=== PATIENT | male | born 1990 | race Caucasian/White ===

== ENCOUNTER 2017-03-14 11:27 | Emergency (ER) | payer SELFPAY ==
[~2017-03-14] VITALS: Ht 190.5 cm; Wt 88.2 kg
[2017-03-14 11:31] VITALS: BP 122/70; PULSE 65; RESP 16; TEMP 98.5; O2SAT 98
[2017-03-14 11:58] LABS: AUTOMATED NEUTROPHIL # 8.9 TH/MM3 (1.8-7.7); BASOPHIL % 0.1 % (0.0-2.0); EOSINOPHIL % 0.3 % (0.0-4.0); HEMATOCRIT 41.9 % (39.0-51.0); HEMO FLAGS DIFF FINAL; LYMPH % 13.5 % (9.0-44.0); LYMPHOCYTE # 1.5 TH/MM3 (1.0-4.8); MEAN CELL VOLUME 84.9 FL (80.0-100.0); MEAN CORPUSCULAR HEMOGLOBIN 29.3 PG (27.0-34.0); MEAN CORPUSCULAR HGB CONC 34.5 % (32.0-36.0); MONO % 4.6 % (0.0-8.0); NEUT % 81.5 % (16.0-70.0); PLATELET COUNT 186 TH/MM3 (150-450); RED BLOOD COUNT 4.94 MIL/MM3 (4.50-5.90); RED CELL DISTRIBUTION WIDTH 12.9 % (11.6-17.2); WHITE BLOOD COUNT 10.9 TH/MM3 (4.0-11.0)
[2017-03-14 12:12] LABS: APTT (PATIENT) 23.1 SEC (24.3-30.1); PROTHROMBIN TIME - PATIENT 10.9 SEC (9.8-11.6)
[2017-03-14 12:16] LABS: ALT (GPT) 27 U/L (12-78); ANION GAP 10 MEQ/L (5-15); AST (GOT) 26 U/L (15-37); BICARBONATE 24.7 MEQ/L (21.0-32.0); BLOOD UREA NITROGEN 14 MG/DL (7-18); CHLORIDE 104 MEQ/L (98-107); GLOMERULAR FILTRATION RATE 70 ML/MIN (>89); POTASSIUM 3.9 MEQ/L (3.5-5.1); SODIUM (NA) 139 MEQ/L (136-145)
[2017-03-14 12:19] LABS: ALKALINE PHOSPHATASE 91 U/L (45-117); TOTAL BILIRUBIN ADULT 0.4 MG/DL (0.2-1.0)
[2017-03-14 14:47] VITALS: BP 131/77; PULSE 81; RESP 16; O2SAT 100
[2017-03-14] MEDS ORDERED: FLINT2 CHEW (14:47)
[2017-03-14] MEDS ORDERED: THERM PO (14:47)
[2017-03-14] MEDS ORDERED: B-122000 PO (14:47)
[2017-03-14] MEDS ORDERED: MORPHINE SULFATE 4 MG/ML INJ IV PUSH ONE (15:00)
[2017-03-14] MEDS ORDERED: ONDANSETRON HCL 4 MG/2 ML VIAL IV PUSH ONE (15:00)
--- NOTE | 2017-03-14 16:10 | PD ---
HPI Chief Complaint: Abdominal Pain Time Seen by Provider: 14:45 Travel History International Travel<30 days: No Contact w/Intl Traveler<30days: No Traveled to known affect area: No History of Present Illness HPI 27-year-old male that presents to the ED for evaluation of left flank pain that radiates to the testicles. Per patient she's had this since 10:00 this morning. Per patient he went to the [facility] office and was told to come here. They were concerned about possible testicular torsion. There were told to come here. Per patient the pain has improved since being here. Per patient he was 9 out of 10 and severe with nausea and vomited and now is more like a 3 out of 10.. Per patient the pain seems to go from the flank to the testicle and not the other way around. He denies any trauma to the testicle. No unprotected sex. No bowel movement issues or urinary issues. No penile discharge. He denies any surgeries. No trauma. No fevers chills or sweats. No other medical issues. No fevers chills or sweats. He threw up whatever he ate. No blood. PFSH Past Medical History Anxiety: Yes Depression: Yes Past Surgical History Surgical History: No Previous Surgery Social History Alcohol Use: Yes Tobacco Use: No Substance Use: No Allergies-Medications (Allergen,Severity, Reaction): Coded Allergies: No Known Allergies (Unverified , 03/14/17) Reported Meds & Prescriptions Reported Meds & Active Scripts Active Cipro (Ciprofloxacin HCl) 500 Mg Tab 500 Mg PO BID 5 Days Flomax (Tamsulosin HCl) 0.4 Mg Cap 0.4 Mg PO HS Ibuprofen 800 Mg Tab 800 Mg PO Q8H PRN Hydrocodone-Acetamin 5-325 mg (Hydrocodone/Acetaminophen) 5 Mg-325 Mg Tablet 1 Tab PO QID PRN Reported Flintstones Complete (Iron/Minerals/Multivitamins) 60 Mg Tab 1 Tab CHEW DAILY Thera M Plus (Multivitamins/Minerals Therapeutic) 1 Tab 1 Tab PO DAILY B-12 (Cyanocobalamin) 2,000 Mcg Tab 2,000 Mcg PO DAILY Review of Systems Except as stated in HPI: all other systems reviewed are Neg Physical Exam Narrative GENERAL: SKIN: Warm and dry. HEAD: Atraumatic. Normocephalic. EYES: Pupils equal and round. No scleral icterus. No injection or drainage. ENT: No nasal bleeding or discharge. Mucous membranes pink and moist. Tongue is midline. No uvula deviation. NECK: Trachea midline. No JVD. CARDIOVASCULAR: Regular rate and rhythm. No murmurs, S3, S4. RESPIRATORY: No accessory muscle use. Clear to auscultation. Breath sounds equal bilaterally. GASTROINTESTINAL: Abdomen soft, non-tender, nondistended. Hepatic and splenic margins not palpable. MUSCULOSKELETAL: Extremities without clubbing, cyanosis, or edema. No obvious deformities. Full range of motion of the upper and lower extremities bilaterally. 2+ pulses bilaterally. NEUROLOGICAL: Awake and alert. No obvious cranial nerve deficits. Motor grossly within normal limits. Five out of 5 muscle strength in the arms and legs. Normal speech. PSYCHIATRIC: Appropriate mood and affect; insight and judgment normal. Data Data Last Documented VS Vital Signs Date Time Temp Pulse Resp B/P (MAP) Pulse Ox O2 Delivery O2 Flow Rate FiO2 03/14/17 17:04 82 20 136/65 (88) 100 Room Air 03/14/17 11:31 98.5 Orders Orders Complete Blood Count With Diff (03/14/17 11:41) Comprehensive Metabolic Panel (03/14/17 11:41) Lipase (03/14/17 11:41) Prothrombin Time / Inr (Pt) (03/14/17 11:41) Act Partial Throm Time (Ptt) (03/14/17 11:41) Urinalysis - C+S If Indicated (03/14/17 11:41) Us Testicles W Doppler (03/14/17 14:53) Ct Abd/Pel W/O Iv Contrast (03/14/17 14:53) Morphine Inj (Morphine Inj) (03/14/17 15:00) Ondansetron Inj (Zofran Inj) (03/14/17 15:00) Ed Discharge Order (03/14/17 17:01) Labs Laboratory Tests Test 03/14/17 11:46 White Blood Count 10.9 TH/MM3 Red Blood Count 4.94 MIL/MM3 Hemoglobin 14.5 GM/DL Hematocrit 41.9 % Mean Corpuscular Volume 84.9 FL Mean Corpuscular Hemoglobin 29.3 PG Mean Corpuscular Hemoglobin Concent 34.5 % Red Cell Distribution Width 12.9 % Platelet Count 186 TH/MM3 Mean Platelet Volume 7.0 FL Neutrophils (%) (Auto) 81.5 % Lymphocytes (%) (Auto) 13.5 % Monocytes (%) (Auto) 4.6 % Eosinophils (%) (Auto) 0.3 % Basophils (%) (Auto) 0.1 % Neutrophils # (Auto) 8.9 TH/MM3 Lymphocytes # (Auto) 1.5 TH/MM3 Monocytes # (Auto) 0.5 TH/MM3 Eosinophils # (Auto) 0.0 TH/MM3 Basophils # (Auto) 0.0 TH/MM3 CBC Comment DIFF FINAL Differential Comment Prothrombin Time 10.9 SEC Prothromb Time International Ratio 1.0 RATIO Activated Partial Thromboplast Time 23.1 SEC Blood Urea Nitrogen 14 MG/DL Creatinine 1.25 MG/DL Random Glucose 123 MG/DL Total Protein 7.8 GM/DL Albumin 4.3 GM/DL Calcium Level 9.7 MG/DL Alkaline Phosphatase 91 U/L Aspartate Amino Transf (AST/SGOT) 26 U/L Alanine Aminotransferase (ALT/SGPT) 27 U/L Total Bilirubin 0.4 MG/DL Sodium Level 139 MEQ/L Potassium Level 3.9 MEQ/L Chloride Level 104 MEQ/L Carbon Dioxide Level 24.7 MEQ/L Anion Gap 10 MEQ/L Estimat Glomerular Filtration Rate 70 ML/MIN Lipase 82 U/L MDM Medical Decision Making Medical Screen Exam Complete: Yes Emergency Medical Condition: Yes Medical Record Reviewed: Yes Interpretation(s) CBC & BMP Diagram 03/14/17 11:46 Total Protein 7.8, Albumin 4.3, Calcium Level 9.7, Alkaline Phosphatase 91, Aspartate Amino Transf (AST/SGOT) 26, Alanine Aminotransferase (ALT/SGPT) 27, Total Bilirubin 0.4 Last Impressions Scrotum Ultrasound 03/14/17 668 Signed Impressions: Service Date/Time: March 15:02 - CONCLUSION: Normal examination. Durga Tate MD Abdomen/Pelvis CT 03/14/17 0804 Signed Impressions: Service Date/Time: March 16:10 - CONCLUSION: There is a 5 x 3 mm stone in the distal left ureter causing mild asymmetric distention of the left collecting system. Additionally, there is a 2 mm nonobstructing left renal stone. Durga Wills MD Differential Diagnosis Kidney stone versus kidney infection versus testicular torsion versus UTI versus abdominal pain versus muscle strain versus epididymitis Narrative Course 27-year-old male that presents to the ED for evaluation of left flank pain to the testicle. Patient was properly examined and was found to have signs and symptoms concerning for torsion versus kidney stone. Labs and imaging were ordered. Patient was given pain medications IV. Labs and imaging showed kidney stone. Otherwise unremarkable. Patient was reassured. Kidney stone does appear to be 5 mm. Patient was told that there is a high chance that this will pass on its own without having to do anything else. He understands this. Patient was given prescriptions for Lortab, ibuprofen, Cipro to cover for bacterial infection as well as Flomax. He was told that if anything worsens she is to come back to the ED. See ED worsening symptoms. Follow with PCP. My attending Dr. Callahan evaluated the patient and agrees with plan. Diagnosis Primary Impression: Left flank pain Additional Impression: Renal colic on left side Patient Instructions: Narcotic given in the ED, General Instructions Departure Forms: Tests/Procedures, Work Release Enter return to work date: Mar 16, 2017 Additional Instructions: Take medications as prescribed. Follow-up with PCP. See ED for any worsening symptoms. Do not drink or drive while taking pain medication. Apply ice or heat as needed for pain Med/Other Pt SpecificInfo: Prescription(s) given Scripts Ciprofloxacin (Cipro) 500 Mg Tab 500 MG PO BID for Infection for 5 Days, #10 TAB 0 Refills Prov: Dejuan Purcell MD 03/14/17 Tamsulosin (Flomax) 0.4 Mg Cap 0.4 MG PO HS for Manage Prostate Problems, #10 CAP 0 Refills Prov: Dejuan Purcell MD 03/14/17 Ibuprofen (Ibuprofen) 800 Mg Tab 800 MG PO Q8H Y for PAIN SCALE 1 TO 10, #20 TAB 0 Refills Prov: Dejuan Purcell MD 03/14/17 Hydrocodone/Acetaminophen (Hydrocodone-Acetamin 5-325 mg) 5 Mg-325 Mg Tablet 1 TAB PO QID Y for PAIN SCALE 1 TO 10, #15 Prov: Dejuan Purcell MD 03/14/17 Disposition: 01 DISCHARGE HOME Condition: Stable Krishna Guzman Mar 14, 2017 16:10
--- NOTE | 2017-03-14 16:21 | PD ---
Physical Exam Date Seen by Provider: Mar 14, 2017 Time Seen by Provider: 15:00 Narrative I, Dr. Purcell, have reviewed the advance practice practitioner's documentation and am in agreement, met with the patient face to face, made the diagnosis, and the medical decision making was done by me. *My assessment and Findings: Patient seen and evaluated with PA, please see PA notes for further details. Here with left flank pains radiating to the left testicle, pain improved in the ER and his own. Initial evaluation shows a pretty benign abdomen, mild left flank tenderness. Male did not show any signs of significant testicular tenderness on palpation, masses, penile discharge, or any signs of rotation. Laboratory Tests Test 03/14/17 11:46 Neutrophils (%) (Auto) 81.5 % (16.0-70.0) Neutrophils # (Auto) 8.9 TH/MM3 (1.8-7.7) Activated Partial Thromboplast Time 23.1 SEC (24.3-30.1) Random Glucose 123 MG/DL (74-106) Estimat Glomerular Filtration Rate 70 ML/MIN (>89) Last 24 hours Impressions Abdomen/Pelvis CT 03/14/17 6603 Signed Impressions: Service Date/Time: , March 14, 2017 16:10 - CONCLUSION: There is a 5 x 3 mm stone in the distal left ureter causing mild asymmetric distention of the left collecting system. Additionally, there is a 2 mm nonobstructing left renal stone. Durga Wills MD Ultrasound shows no signs of torsion or other acute abnormalities. CAT scan does show the 5 x 3 mm stone in the left ureter which is causing symptoms. At this point, plan would be to release the patient would follow-up to urology and have him strain his urine. Return for worsening in pain or new symptoms as needed. The plan was discussed with the patient he states understanding. Data Data Last Documented VS Vital Signs Date Time Temp Pulse Resp B/P (MAP) Pulse Ox O2 Delivery O2 Flow Rate FiO2 03/14/17 14:47 81 16 131/77 (95) 100 Room Air 03/14/17 11:31 98.5 Orders Orders Complete Blood Count With Diff (03/14/17 11:41) Comprehensive Metabolic Panel (03/14/17 11:41) Lipase (03/14/17 11:41) Prothrombin Time / Inr (Pt) (03/14/17 11:41) Act Partial Throm Time (Ptt) (03/14/17 11:41) Urinalysis - C+S If Indicated (03/14/17 11:41) Us Testicles W Doppler (03/14/17 14:53) Ct Abd/Pel W/O Iv Contrast (03/14/17 14:53) Morphine Inj (Morphine Inj) (03/14/17 15:00) Ondansetron Inj (Zofran Inj) (03/14/17 15:00) Labs Laboratory Tests Test 03/14/17 11:46 White Blood Count 10.9 TH/MM3 Red Blood Count 4.94 MIL/MM3 Hemoglobin 14.5 GM/DL Hematocrit 41.9 % Mean Corpuscular Volume 84.9 FL Mean Corpuscular Hemoglobin 29.3 PG Mean Corpuscular Hemoglobin Concent 34.5 % Red Cell Distribution Width 12.9 % Platelet Count 186 TH/MM3 Mean Platelet Volume 7.0 FL Neutrophils (%) (Auto) 81.5 % Lymphocytes (%) (Auto) 13.5 % Monocytes (%) (Auto) 4.6 % Eosinophils (%) (Auto) 0.3 % Basophils (%) (Auto) 0.1 % Neutrophils # (Auto) 8.9 TH/MM3 Lymphocytes # (Auto) 1.5 TH/MM3 Monocytes # (Auto) 0.5 TH/MM3 Eosinophils # (Auto) 0.0 TH/MM3 Basophils # (Auto) 0.0 TH/MM3 CBC Comment DIFF FINAL Differential Comment Prothrombin Time 10.9 SEC Prothromb Time International Ratio 1.0 RATIO Activated Partial Thromboplast Time 23.1 SEC Blood Urea Nitrogen 14 MG/DL Creatinine 1.25 MG/DL Random Glucose 123 MG/DL Total Protein 7.8 GM/DL Albumin 4.3 GM/DL Calcium Level 9.7 MG/DL Alkaline Phosphatase 91 U/L Aspartate Amino Transf (AST/SGOT) 26 U/L Alanine Aminotransferase (ALT/SGPT) 27 U/L Total Bilirubin 0.4 MG/DL Sodium Level 139 MEQ/L Potassium Level 3.9 MEQ/L Chloride Level 104 MEQ/L Carbon Dioxide Level 24.7 MEQ/L Anion Gap 10 MEQ/L Estimat Glomerular Filtration Rate 70 ML/MIN Lipase 82 U/L [facility] Medical Record Reviewed: Yes Supervised Visit with JOSE: Yes Diagnosis Primary Impression: Left flank pain Additional Impression: Renal colic on left side Med/Other Pt SpecificInfo: Prescription(s) given Scripts Hydrocodone/Acetaminophen (Hydrocodone-Acetamin 5-325 mg) 5 Mg-325 Mg Tablet 1 TAB PO QID Y for PAIN SCALE 1 TO 10, #15 Prov: Dejuan Purcell MD 03/14/17 Disposition: 01 DISCHARGE HOME Condition: Stable Dejuan Purcell MD Mar 14, 2017 16:21
--- NOTE | 2017-03-14 16:39 | RADRPT ---
EXAM DATE/TIME: 03/14/2017 16:10 [facility] COMPARISON: No previous studies available for comparison. INDICATIONS : Left flank pain for one day. ORAL CONTRAST: No oral contrast ingested. RADIATION DOSE: 8.44 CTDIvol (mGy) MEDICAL HISTORY : None SURGICAL HISTORY : None. ENCOUNTER: Initial ACUITY: 1 day PAIN SCALE: 8/10 LOCATION: Left flank region. TECHNIQUE: Volumetric scanning of the abdomen and pelvis was performed. Using automated exposure control and ad justment of the mA and/or kV according to patient size, radiation dose was kept as low as reasonably achievable to obtain optimal diagnostic quality images. DICOM format image data is available electro nically for review and comparison. FINDINGS: LOWER LUNGS: The visualized lower lungs are clear. LIVER: Homogeneous density without lesion. There is no dilation of the biliary tree. No calcified gallston es. SPLEEN: Normal size without lesion. PANCREAS: Within normal limits. KIDNEYS: Normal in size and shape. There is a 2 mm nonobstructing stone in the left lower pole kidney. Mild di stention of the left collecting system is present along with a mild left hydroureter. A 5 x 3 mm ston e is present in the distal left ureter within the pelvis. In the left mid kidney there is a 12 mm cys t. Right kidney demonstrates no abnormality. ADRENAL GLANDS: Within normal limits. VASCULAR: There is no aortic aneurysm. BOWEL/MESENTERY: The stomach, small bowel, and colon demonstrate no acute abnormality. There is no free intraperitone al air or fluid. Appendix is normal. ABDOMINAL WALL: Within normal limits. RETROPERITONEUM: There is no lymphadenopathy. BLADDER: No wall thickening or mass. REPRODUCTIVE: Within normal limits. INGUINAL: There is no lymphadenopathy or hernia. MUSCULOSKELETAL: No acute abnormality. CONCLUSION: There is a 5 x 3 mm stone in the distal left ureter causing mild asymmetric distention of the left co llecting system. Additionally, there is a 2 mm nonobstructing left renal stone. Durga Wills MD on March 14, 2017 at 16:34 Board Certified Radiologist. This report was verified electronically.
--- NOTE | 2017-03-14 16:45 | RADRPT ---
EXAM DATE/TIME: 03/14/2017 15:02 [facility] COMPARISON: No previous studies available for comparison. INDICATIONS : Testicle pain. MEDICAL HISTORY : Depression. Anxiety. SURGICAL HISTORY : None. ENCOUNTER: Initial ACUITY: 1 day PAIN SCORE: 7/10 LOCATION: Bilateral testicles. MEASUREMENTS: RIGHT TESTICLE: 3.2 x 1.8 x 4.4cm LEFT TESTICLE: 2.9 x 2.2 x 4.4cm FINDINGS: RIGHT TESTICLE: Homogeneous echotexture without intra or extratesticular mass. Blood flow is symmetric and within no rmal limits. No hydrocele or varicocele. Epididymis is within normal limits. LEFT TESTICLE: Homogeneous echotexture without intra or extratesticular mass. Blood flow is symmetric and within no rmal limits. No hydrocele or varicocele. Epididymis is within normal limits. SCROTUM: Within normal limits. CONCLUSION: Normal examination. Durga Tate MD on March 14, 2017 at 16:10 Board Certified Radiologist. This report was verified electronically.
[2017-03-14] MEDS ORDERED: HYDR-3516 PO (16:55)
[2017-03-14] MEDS ORDERED: IBUP1TAB7 PO (16:58)
[2017-03-14] MEDS ORDERED: TAMS5CAP PO (16:58)
[2017-03-14] MEDS ORDERED: CIPR-9 PO (16:58)
[2017-03-14 17:04] VITALS: BP 136/65; PULSE 82; RESP 20; O2SAT 100
== END 2017-03-14 18:13 | disposition home or self-care (01) ==
LOC: NEPE 11:27
DX: N20.2 Calculus of kidney with calculus of ureter (principal); R11.2 Nausea with vomiting, unspecified; F41.9 Anxiety disorder, unspecified; F32.9 Major depressive disorder, single episode, unspecified; Z79.899 Other long term (current) drug therapy
CPT/HCPCS: 74176; 76870; 80053; 83690; 85025; 85610; 85730; 93975; 99285